=== PATIENT | female | born 1945 | race African-American/Black ===

== ENCOUNTER 2018-08-25 13:38 | Outpatient (RCR) | payer MEDICARE | END 2018-09-15 14:15 | LOC: OPPGERO 13:38 | DX: F33.1 Major depressive disorder, recurrent, moderate (principal); F41.1 Generalized anxiety disorder; I10 Essential (primary) hypertension; H26.9 Unspecified cataract; M17.10 Unilateral primary osteoarthritis, unspecified knee; E66.3 Overweight; Z59.9 Problem related to housing and economic circumstances, unspecified; Z60.8 Other problems related to social environment; Z79.899 Other long term (current) drug therapy; Z85.528 Personal history of other malignant neoplasm of kidney; Z90.5 Acquired absence of kidney ==

== ENCOUNTER 2018-09-16 09:33 | Outpatient (RCR) | payer MEDICARE | END 2018-10-15 15:13 | LOC: OPPGERO 09:33 | DX: F32.1 Major depressive disorder, single episode, moderate (principal); F41.1 Generalized anxiety disorder; I10 Essential (primary) hypertension; H26.9 Unspecified cataract; M17.10 Unilateral primary osteoarthritis, unspecified knee; E66.3 Overweight; Z63.79 Other stressful life events affecting family and household; Z60.8 Other problems related to social environment; Z79.899 Other long term (current) drug therapy; Z85.528 Personal history of other malignant neoplasm of kidney; Z90.5 Acquired absence of kidney ==

== ENCOUNTER 2018-10-18 08:12 | Outpatient (RCR) | payer MEDICARE | END 2018-11-15 12:09 | LOC: OPPGERO 08:12 | DX: F33.1 Major depressive disorder, recurrent, moderate (principal); F41.1 Generalized anxiety disorder; I10 Essential (primary) hypertension; H26.9 Unspecified cataract; M17.10 Unilateral primary osteoarthritis, unspecified knee; E66.3 Overweight; Z85.528 Personal history of other malignant neoplasm of kidney; Z90.5 Acquired absence of kidney; Z63.8 Other specified problems related to primary support group; Z59.9 Problem related to housing and economic circumstances, unspecified; Z60.8 Other problems related to social environment; Z79.899 Other long term (current) drug therapy ==

== ENCOUNTER 2018-11-17 09:50 | Outpatient (RCR) | payer MEDICARE | END 2018-12-16 13:29 | LOC: OPPGERO 09:50 | DX: F32.1 Major depressive disorder, single episode, moderate (principal); F41.1 Generalized anxiety disorder; I10 Essential (primary) hypertension; H26.9 Unspecified cataract; M17.10 Unilateral primary osteoarthritis, unspecified knee; E66.3 Overweight; Z85.528 Personal history of other malignant neoplasm of kidney; Z90.5 Acquired absence of kidney; Z60.8 Other problems related to social environment; Z60.3 Acculturation difficulty; Z79.899 Other long term (current) drug therapy ==

== ENCOUNTER 2018-12-17 08:19 | Outpatient (RCR) | payer MEDICARE | END 2019-01-13 13:42 | LOC: OPPGERO 08:19 | DX: F33.1 Major depressive disorder, recurrent, moderate (principal); F41.1 Generalized anxiety disorder; Z85.528 Personal history of other malignant neoplasm of kidney; Z90.5 Acquired absence of kidney; H26.9 Unspecified cataract; M17.10 Unilateral primary osteoarthritis, unspecified knee; E66.3 Overweight; Z60.3 Acculturation difficulty; Z60.8 Other problems related to social environment; Z79.899 Other long term (current) drug therapy ==

== ENCOUNTER 2019-01-14 13:52 | Outpatient (RCR) | payer MEDICARE | END 2019-02-11 15:19 | LOC: OPPGERO 13:52 | DX: F32.0 Major depressive disorder, single episode, mild (principal); F41.1 Generalized anxiety disorder; C64.1 Malignant neoplasm of right kidney, except renal pelvis; Z90.5 Acquired absence of kidney; I10 Essential (primary) hypertension; H26.9 Unspecified cataract; M17.9 Osteoarthritis of knee, unspecified; E66.3 Overweight ==

== ENCOUNTER 2019-02-14 08:51 | Outpatient (RCR) | payer MEDICARE | END 2019-03-15 14:41 | LOC: OPPGERO 08:51 | DX: F33.41 Major depressive disorder, recurrent, in partial remission (principal); F41.8 Other specified anxiety disorders; C64.1 Malignant neoplasm of right kidney, except renal pelvis; I10 Essential (primary) hypertension; E66.3 Overweight; M13.869 Other specified arthritis, unspecified knee; H26.9 Unspecified cataract ==